=== PATIENT | male | born 1985 | race Caucasian/White ===

== ENCOUNTER 2019-02-03 20:25 | Emergency (ER) | payer OTHER ==
[~2019-02-03] VITALS: Ht 170.2 cm; Wt 77.1 kg
[2019-02-03 20:32] VITALS: BP 151/102
--- NOTE | 2019-02-03 20:35 | NUR ---
BIB PARENTS. PT AAO X4 SYNCOPAL EPISODE AROUND 1750PM. FOUND ON THE FLOOR ON POSITION BY CO WORKER DENIES PAIN. NOT WITNESSED. STATES LOTS OF ANXIETY AT THIS TIME. PT DENIES DIZZINESS, SOB. PT STATES THAT HE FELT N/V, DIZZINESS, PANIC ATTACK PRIOR TO SYNCOPE. PER PT, HE DRANK ENERGY DRINK WITH NO FOOD INTAKE FOR TODAY. PERRLA, BRISK 3 MM. FULL CLEAR SPEECH. MOHINDER EQUAL STRENGTH TO UPPER AND LOWER EXTREMITIES. 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 HOB UP. BED SIDE RAILS UP X1. ON LOW BED POSITION, LOCKED. ER MADE AWARE OF PT STATUS.
--- NOTE | 2019-02-03 21:06 | NUR ---
Pt report given to JETT Griffin. Transfer of care at this time.
[2019-02-03] MEDS ORDERED: NACL 0.9% 2,000 ML IV ONE (21:15)
[2019-02-03 21:45] LABS: BASOPHILS # (AUTO) 0.1 K/uL (0.00-0.22); BASOPHILS % (AUTO) 0.7 % (0.0-2.0); EOSINOPHILS # (AUTO) 0.2 K/uL (0-0.4); EOSINOPHILS % (AUTO) 2.8 % (0.0-4.0); HEMATOCRIT 42.7 % (36-52); HEMOGLOBIN 14.6 g/dL (12.0-18.0); LYMPHOCYTES # (AUTO) 1.9 K/uL (2.0-11.5); LYMPHOCYTES % (AUTO) 23.6 % (20.5-51.1); MEAN CORPUSCULAR HEMOGLOBIN 30 pg (27-31); MEAN CORPUSCULAR HGB CONC 34 g/dL (33-37); MEAN CORPUSCULAR VOLUME 88.6 fL (80-94); MONOCYTES # (AUTO) 0.5 K/uL (0.8-1.0); MONOCYTES % (AUTO) 6.7 % (1.7-9.3); NEUTROPHILS # (AUTO) 5.4 K/uL (1.8-7.7); NEUTROPHILS % (AUTO) 66.2 % (42.2-75.2); PLATELET COUNT (AUTO) 238 K/uL (140-450); RED BLOOD CELL COUNT(AUTO) 4.82 MIL/uL (4.20-6.10); RED CELL DISTRIBUTION WIDTH 13.1 % (11.6-13.7); WHITE BLOOD COUNT (AUTO) 8.1 K/uL (4.8-10.8)
[2019-02-03 21:55] LABS: ANION GAP 12.5 (8-16); CARBON DIOXIDE 27.9 mmol/L (21-32); CHLORIDE 103 mmol/L (98-107); CREATININE 0.9 mg/dL (0.7-1.3); GFR ARICAN-AMERICAN 127 mL/min (>90); GLUCOSE 102 mg/dL (74-106); POTASSIUM 3.4 mmol/L (3.5-5.1); SODIUM SERUM 140 mmol/L (136-145); UREA NITROGEN, BLOOD 12 mg/dL (7-18)
[2019-02-03 22:01] LABS: ALBUMIN 3.9 g/dL (3.4-5.0); ASPARTATE AMINOTRANSFERASE 16 U/L (15-37); TOTAL BILIRUBIN 0.3 mg/dL (0.0-1.0)
[2019-02-03 22:03] LABS: ACETAMINOPHEN < 0.5 ug/ml (10-30); SALICYLATE < 2.8 mg/dL (2.8-20.0)
--- NOTE | 2019-02-03 22:16 | NUR ---
PT ATTEMPTED TO GIVE URINE, UNABLE TO PRODUCE. REFUSED CATHETER, EDMD MADE AWARE.
[2019-02-03 23:18] LABS: BARBITURATE, URINE NEGATIVE ng/ml (NEG <=200); BENZODIAZEPINE, URINE POSITIVE ng/mL (NEG <=200); CANNABINOID, URINE POSITIVE ng/mL (NEG <=50); COCAINE, URINE POSITIVE ng/mL (NEG <=300); OPIATE, URINE NEGATIVE ng/mL (NEG <=2000); PHENCYCLIDINE SCREEN,URINE NEGATIVE ng/mL (NEG <=25)
[2019-02-03] MEDS ORDERED: AMMONIA AROMATIC 1 INHL INH ONE ×2 (23:35→23:43)
[2019-02-03] MEDS ORDERED: NALOXONE 0.4 MG/ML VIAL IVP ONE (23:45)
[2019-02-03] MEDS ORDERED: NALOXONE 0.4 MG/ML VIAL ONE (23:50)
--- NOTE | 2019-02-03 23:50 | NUR ---
PT UNABLE TO BE AROUSED. NON RESPONSIVE TO PAIN AND VOICE. ER MD AWARE. NEW ORDERS RECEIVED.
--- NOTE | 2019-02-03 23:55 | NUR ---
PT STILL UNABLE TO RESPOND TO VERBAL AND PAINFUL STIMULI. ER MD AT BEDSIDE. 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 VITALS ARE STABLE.
--- NOTE | 2019-02-04 01:44 | NUR ---
PT RESPONSIVE TO VERBAL STIMULI AT THIS TIME. ABLE TO ANSWER QUESTIONS AND SIT IN WHEELCHAIR INDEPENDANTLY. ER AWARE. OKAY TO D/C AT THIS TIME.
[2019-02-04 02:00] VITALS: BP 170/95
--- NOTE | 2019-02-04 02:00 | NUR ---
Patient discharged with v/s stable. Written and verbal after care instructions given and explained. Patient verbalized understanding. Wheel Chair Assisted with by parent. All questions addressed prior to discharge. Advised to follow up with PMD.
== END 2019-02-04 02:50 | disposition home or self-care (01) ==
LOC: MED 20:25
DX: F14.10 Cocaine abuse, uncomplicated (principal); F12.10 Cannabis abuse, uncomplicated; F13.10 Sedative, hypnotic or anxiolytic abuse, uncomplicated; F41.9 Anxiety disorder, unspecified; F17.210 Nicotine dependence, cigarettes, uncomplicated
CPT/HCPCS: 36415; 80053; 80305; 84484; 85025; 93005; 96361; 96374; 99284; G0480; G0482; J2310; J7030

== ENCOUNTER 2020-02-01 16:13 | Emergency (ER) | payer OTHER ==
[~2020-02-01] VITALS: Ht 170.2 cm; Wt 93.0 kg
[2020-02-01 16:33] VITALS: BP 122/83
[2020-02-01] MEDS ORDERED: NACL 0.9% 1,000 ML IV ONE (16:50)
[2020-02-01 17:14] LABS: BASOPHILS # (AUTO) 0.1 K/uL (0.00-0.22); BASOPHILS % (AUTO) 1.5 % (0.0-2.0); EOSINOPHILS % (AUTO) 0.1 % (0.0-4.0); HEMATOCRIT 42.5 % (36-52); LYMPHOCYTES % (AUTO) 22.4 % (20.5-51.1); MEAN CORPUSCULAR HEMOGLOBIN 31 pg (27-31); MEAN CORPUSCULAR HGB CONC 33 g/dL (33-37); MEAN CORPUSCULAR VOLUME 92.5 fL (80-94); MONOCYTES # (AUTO) 0.6 K/uL (0.8-1.0); NEUTROPHILS # (AUTO) 6.3 K/uL (1.8-7.7); PLATELET COUNT (AUTO) 226 K/uL (140-450); RED CELL DISTRIBUTION WIDTH 12.9 % (11.6-13.7); WHITE BLOOD COUNT (AUTO) 9.1 K/uL (4.8-10.8)
[2020-02-01] MEDS ORDERED: FLUORESCEIN OPTH STRIP 1 MG ONE (17:16)
[2020-02-01 17:32] LABS: ALBUMIN 3.4 g/dL (3.4-5.0); ANION GAP 5.4 (8-16); ASPARTATE AMINOTRANSFERASE 28 U/L (15-37); CARBON DIOXIDE 36.9 mmol/L (21-32); CHLORIDE 101 mmol/L (98-107); CREATININE 1.4 mg/dL (0.6-1.3); GFR ARICAN-AMERICAN 76 mL/min (>90); GLUCOSE 102 mg/dL (74-106); POTASSIUM 3.3 mmol/L (3.5-5.1); SODIUM SERUM 140 mmol/L (136-145); TOTAL BILIRUBIN 0.3 mg/dL (0.0-1.0); UREA NITROGEN, BLOOD 12 mg/dL (7-18)
[2020-02-01 17:39] LABS: ACETAMINOPHEN < 0.5 ug/ml (10-30); SALICYLATE < 2.8 mg/dL (2.8-20.0)
[2020-02-01] MEDS ORDERED: ONDANSETRON 4 MG/2 ML VIAL IVP ONE (17:40)
[2020-02-01 18:48] LABS: APPEARANCE,URINE CLEAR (CLEAR); BILIRUBIN,URINE NEGATIVE (NEGATIVE); BLOOD, URINE NEGATIVE (NEGATIVE); COLOR,URINE YELLOW (YELLOW); LEUKOCYTE ESTERASE ,URINE NEGATIVE (NEGATIVE); NITRITE, URINE NEGATIVE (NEGATIVE); PH,URINE 6.5 (5.0-9.0); UGLUCOSE NEGATIVE (NEGATIVE)
[2020-02-01 18:57] VITALS: BP 134/78
== END 2020-02-01 18:58 | disposition home or self-care (01) ==
LOC: MED 16:13
DX: T42.4X1A Poisoning by benzodiazepines, accidental (unintentional), initial encounter (principal); E86.0 Dehydration; F12.90 Cannabis use, unspecified, uncomplicated; F32.9 Major depressive disorder, single episode, unspecified; F41.9 Anxiety disorder, unspecified; G89.29 Other chronic pain; Y92.89 Other specified places as the place of occurrence of the external cause
CPT/HCPCS: 36415; 80053; 81003; 85025; 93005; 96361; 96374; 99284; G0480; G0482; J2405; J7030